=== PATIENT | female | born 1975 | race Caucasian/White ===

== ENCOUNTER 2016-05-28 18:21 | Emergency (ER) ==
[2016-05-28 18:27] VITALS: BP 154/99
[2016-05-28] MEDS ORDERED: NUBAIN IM ONE (19:49)
[2016-05-28] MEDS ORDERED: PHENERGAN IM ONE (19:49)
--- NOTE | 2016-05-28 19:50 | PROVIDER DOCUMENTATION ---
HPI-Headache - General Chief Complaint: Headache Stated Complaint: STRAUSS, DOUBLE VISION, NAUSEA Time Seen by Provider: 05/28/16 19:45 Source: patient Allergies/Adverse Reactions: Patient Allergies Allergy/AdvReac Type Severity Reaction Status Date / Time No Known Allergies Allergy Verified 08/22/14 18:56 Home Medications: Clonazepam 2 mg PO DAILY 08/22/14 - History of Present Illness-Headache Nature of Presenting Problem: 40 y/o WF c hx of migraines, c/o migraine that started yesterday. She was taking Excedrine migraine that was helping, but ran out. now having auras with her migraines, that look like shadows. Denies changes in vision or blurry vision. Associated photophobia and nausea. This is typical of her migraines, except for the aura. Denies seizure activity. No neurologic deficits. Review of Systems - Adult - REVIEW OF SYSTEMS - ADULT Constitutional: reports: no symptoms reported. denies: chills, fatique Eyes: reports: see HPI, eye pain (photphobia) Ears, Nose, Mouth & Throat: reports: no symptoms reported. denies: ear pain, nose pain, throat pain Cardiovascular: reports: no symptoms reported. denies: chest pain, palpitations Respiratory: reports: no symptoms reported. denies: cough, shortness of breath Gastrointestinal: reports: see HPI, nausea. denies: abdominal pain, diarrhea, vomiting Genitourinary: reports: no symptoms reported. denies: dysuria, discharge, frequency Musculoskeletal: reports: no symptoms reported. denies: see HPI, back pain, muscle aches Integumentary: reports: no symptoms reported. denies: rash Neurological: reports: headache/migraines. denies: ataxia, dizziness/vertigo, loss of balance, numbness, paresthesia, seizure, slurred speech Psychiatric: reports: no symptoms reported Endocrine: reports: no symptoms reported Hematologic/Lymphatic: reports: no symptoms reported Allergic/Immunologic: reports: no symptoms reported All Other Systems: Reviewed and Negative Past History - Adult - PAST MEDICAL HISTORY-ADULT Review of Records: reports: Old Records Reviewed, Nursing Assessment Review, Medications Reviewed, Social history reviewed & non-contributory. Major Childhood Illnesses: reports: denies history Cardiovascular: reports: denies history Respiratory: reports: denies history Gastrointestinal: reports: denies history Obstetrical/Gynecological: reports: denies history Genitourinary: reports: denies history Musculoskeletal: reports: chronic pain, intervertebral disc disease, neck/back injury Neurological: reports: denies history Endocrine/Immune: reports: denies history Other Conditions: reports: denies history, other (hypoglycemai) - PRIOR SURGERIES/PROCEDURES Surgical/Procedure History: reports: reviewed, not pertinent - IMMUNIZATION STATUS Childhood Immunizations: See Nurse Assessment Flu Vaccine: See Nurse Assessment - FAMILY HISTORY Family History: reviewed, not pertinent - SOCIAL HISTORY Smoking: denies Substance Use: none/never Alcohol Use Frequency: never Physical Exam- Neurological - Physical Exam-Neuro Initial Vital Signs Reviewed: Yes General Appearance: appears well, alert, no apparent distress Eye Exam: bilateral eye: normal inspection, PERRL, EOMI HENMT: normocephalic/atraumatic, moist mucous membranes, normal ENT inspection Head Injury: no evidence of injury Neck: non-tender, full range of motion, supple, normal inspection Respiratory: chest non-tender, lungs clear, normal breath sounds, no pleuratic chest pain, no respiratory distress, no accessory muscle use. negative: respiratory distress, decreased breath sounds, accessory muscle use, crackles, rales, rhonchi, wheezing Cardiovascular: normal peripheral pulses, regular rate, rhythm, no edema, no gallop, no JVD, no murmur. 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 negative: facial droop, focal weakness, motor weakness, sensory deficit Integumentary: normal color, normal turgor, warm/dry Psych/Mental Status: AL, normal mood/affect, normal thought content, normal thought process, oriented x 3 - Glascow Coma Scale Best Eye Response: (4) open spontaneously Best Verbal Response: (5) oriented Best Motor Response: (6) obeys commands Progress - PLAN OF CARE/RESULTS Progress/Plan/Lab Results: Vital Signs Temp Pulse Resp BP Pulse Ox 05/28/16 18:24 97.4 F L 75 20 154/99 100 No Known Allergies Allergy (Verified 08/22/14 18:56) Clonazepam 2 mg PO DAILY 08/22/14 Cyclobenzaprine [Flexeril] 10 mg PO TID PRN #10 tablet 08/22/14 Tramadol [Ultram] 50 mg PO Q8HR PRN #10 tablet 08/22/14 Orders Category Date Time Status Nalbuphine [Nubain] Med 05/28/16 19:49 Discontinued 10 mg IM NOW ONE Promethazine [Phenergan] Med 05/28/16 19:49 Discontinued 25 mg IM NOW ONE Departure - Departure Time of Disposition Order: 19:49 DIAGNOSIS: Migraine Qualifiers: Migraine type: with aura Status migrainosus presence: without status migrainosus Intractability: not intractable Qualified Code(s): G43.109 - Migraine with aura, not intractable, without status migrainosus Disposition: HOME 01 Certified Medical Emergency: Emergent Condition: Stable Additional Instructions: Follow up with the neurologist. ED Follow Up Instructions: You have been treated by a care provider in the Emergency Department. These instructions are being provided to you so you can have an understanding of how to care for yourself upon discharge. Upon discharge from the Emergency Department, you are responsible for making arrangements for follow-up care by a physician of your choice. Take all prescribed medications as directed. Return to the Emergency Department immediately for any new or worsening symptoms. You may call the Physician Referral phone number at [phone] to obtain a list of Physicians who are taking new patients. Referrals: None,PCP [Primary Care Provider] - Quinn Alfred III, MD [STAFF PHYSICIAN] - Attestation - Physician/ Mid-level Attestation Patient care was provided by Mid-level provider (IUSS MASTER ANALYST/PA):: Yes Mid-level provider:: Stormy Salazar Mid-level documentation review:: The Mid-level provider documentation, treatment plan and medical decision making was reviewed by the physician who agrees with all treatment and medical decision making by the [facility].
== END 2016-05-28 20:17 | disposition home or self-care (01) ==
LOC: ED 18:21
DX: G43.109 Migraine with aura, not intractable, without status migrainosus (principal); R51 Headache; H53.2 Diplopia; R11.0 Nausea; H53.149 Visual discomfort, unspecified; G89.29 Other chronic pain; Z79.899 Other long term (current) drug therapy
CPT/HCPCS: 96372; J2300; J2550